=== PATIENT | female | born 1995 | race Caucasian/White ===

== ENCOUNTER 2019-03-18 21:50 | Emergency (ER) | payer BC, OTHER ==
[2019-03-18 22:05] VITALS: BP 124/81; PULSE 93; TEMP 98.4; BMI 23.4
--- NOTE | 2019-03-18 23:05 | PDOC ---
History of Present Illness - General Chief Complaint: Chest Pain Stated Complaint: CHEST PAIN Time Seen by Provider: 03/18/19 23:03 Past History - Past Medical History Allergies/Adverse Reactions: Allergies Allergy/AdvReac Type Severity Reaction Status Date / Time No Known Allergies Allergy Verified 03/18/19 22:00 Anemia: No Asthma: No Cancer: No Cardiac Disorders: No COPD: No CHF: No DVT: No - Suicide/Smoking/Psychosocial Hx Smoking History: Former smoker Have you smoked in the past 12 months: Yes If you are a former smoker, when did you quit?: aug 2018 Information on smoking cessation initiated: Yes Hx Alcohol Use: Yes (socially) Drug/Substance Use Hx: No *Physical Exam - Vital Signs Last Vital Signs Temp Pulse Resp BP Pulse Ox 98.4 F 93 H 20 124/81 99 03/18/19 22:00 03/18/19 22:00 03/18/19 22:00 03/18/19 22:00 03/18/19 22:00 Heart Score/ECG Review - History History: Slightly suspicious - Age Age: </= 45 - Risk Factors Based on the list above the patient has:: 1-2 risk factors ED Treatment Course - LABORATORY CBC & Chemistry Diagram: 03/19/19 00:35 03/19/19 01:50 *DC/Admit/Observation/Transfer Diagnosis at time of Disposition: Dyspepsia - Discharge Dispostion Disposition: HOME Condition at time of disposition: Stable Decision to Admit order: No - Referrals Referrals: Catherine Maradiaga MD [Staff Physician] - - Patient Instructions Printed Discharge Instructions: DI for Anxiety -- Adult, DI for Dyspepsia Additional Instructions: You were evaluated in the Emergency Department for chest pain. We evaluated your symptoms, and your bloodwork and ultrasound imaging all returned within normal limits. Please follow up Dr. Maradiaga, he can refer you to a good therapist in his group. Also follow up with your primary care doctor within the next week. Please return to the emergency department if you develop trouble breathing, worsening chest pain, swelling in your legs, or high fevers. - Post Discharge Activity
[2019-03-18] MEDS ORDERED: MAG HYDROX/AL HYDROX/SIMETH 30 ML UNIT-DOSE CUP PO ONE (23:51)
[2019-03-18] MEDS ORDERED: FAMOTIDINE 20 MG/50 ML IVPB 20 MG/50 ML MG IVPB ONE (23:51)
--- NOTE | 2019-03-18 23:54 | PDOC ---
Documentation entered by Codi Alves SCRIBE, acting as scribe for Kj Campa MD. Kj Campa MD: This documentation has been prepared by the Joselyn millan Brenda, SCRIBE, under my direction and personally reviewed by me in its entirety. I confirm that the documentation accurately reflects all work, treatment, procedures, and medical decision making performed by me. Attending Attestation - Resident Resident Name: RenettaDustin - ED Attending Attestation I have performed the following: I have examined & evaluated the patient, The case was reviewed & discussed with the resident, I agree w/resident's findings & plan, Exceptions are as noted - HPI HPI: 03/19/19 01:06 The patient is a 23 year old female, with no reported significant PMH who presents to the emergency department with 2 days of ongoing worsening midsternal chest pain, which she describes as a squeezing sensation. She reports that the pain was initially intermittent but became constant, and reports slight nausea with 1 episode of NBNB emesis. Patient also states that she has felt her heart racing, but notes that it could be due to feeling anxious about symptoms. The patient denies shortness of breath, headache and dizziness. Denies fever, chills, diarrhea and constipation. Denies dysuria, frequency, urgency and hematuria. Allergies: NKA Past surgical history: None reported Social history: Former tobacco use, quit August of 2018. Social alcohol use. - Physicial Exam PE: 03/19/19 01:12 Vitals: Triage vital signs reviewed General Appearance: No acute distress, well nourished, well developed Head: Atraumatic Neck: Supple; No nuchal rigidity Chest Wall: Nontender Cardiac: Regular rate and rhythm, no murmurs, no rubs, no gallops Lungs: Clear to auscultation bilateral, good air movement bilaterally Abdomen: Soft, nondistended, normal bowel sounds, nontender to palpation Extremities: (+) Very slight right lower extremity swelling. Full range of motion to all extremities, no cyanosis, no clubbing. Skin: Warm and dry, no rashes or lesions, no rash, no petechiae Neuro: AOX3; Cranial Nerves 2-12 grossly intact. Psych: Normal mood, normal affect - Medical Decision Making 03/19/19 01:42 23 years old on control presents to the ED with pleuritic right-sided chest pain became concerned when pain became more constant No travel no sick contacts has felt her heart racing Physical examination was noted to all 4 very slight right lower extremity swelling EKG demonstrated normal sinus rhythm incomplete right bundle-branch block Low risk for PE however patient Cannot be PERC'd out. Will check D dimer, cxr , US labs and resasses. Dr. Yu to follow up labs and dispo
[2019-03-19] MEDS ORDERED: FAMOTIDINE 20 MG/50 ML IVPB 20 MG/50 ML MG IVPB ONE (00:50)
[2019-03-19] MEDS ORDERED: MAG HYDROX/AL HYDROX/SIMETH 30 ML UNIT-DOSE CUP ONE (00:50)
[2019-03-19 00:57] LABS: BASO % 0.4 % (0-2.0); EOS % 2.9 % (0-4.5); HEMATOCRIT 38.5 % (32.4-45.2); MCH 30.7 pg (25.7-33.7); MCHC 33.9 g/dl (32.0-36.0); MEAN CELL VOLUME 90.5 fl (80-96); MEAN PLT VOLUME 9.8 fl (7.5-11.1); MONO % 6.5 % (3.8-10.2); NEUT % 65.2 % (42.8-82.8); PLATELET COUNT 236 K/MM3 (134-434); RBC 4.25 M/mm3 (3.60-5.2); RDW 12.6 % (11.6-15.6); WHITE BLOOD COUNT 12.9 K/mm3 (4.0-10.0)
[2019-03-19 01:25] LABS: LIPASE 152 U/L (73-393)
[2019-03-19 02:47] LABS: ALBUMIN 3.8 g/dl (3.4-5.0); BILIRUBIN,TOTAL 0.6 mg/dL (0.2-1); BLOOD UREA NITROGEN 13.6 mg/dL (7-18); CALCIUM 9.7 mg/dL (8.5-10.1); CREATININE 0.8 mg/dL (0.55-1.3); POTASSIUM 3.5 mmol/L (3.5-5.1); TOT PROT 6.7 g/dl (6.4-8.2)
--- NOTE | 2019-03-19 16:06 | EKG ---
Test Reason : Blood Pressure : / mmHG Vent. Rate : 083 BPM Atrial Rate : 083 BPM P-R Int : 136 ms QRS Dur : 092 ms QT Int : 386 ms P-R-T Axes : 041 068 028 degrees QTc Int : 453 ms NORMAL SINUS RHYTHM INCOMPLETE RIGHT BUNDLE BRANCH BLOCK BORDERLINE ECG NO PREVIOUS ECGS AVAILABLE Confirmed by MD CARLA, AKIN ([id number]) on 03/19/2019 4:05:51 PM Referred By: Confirmed By:AKIN AGUIRRE MD
--- NOTE | 2019-03-21 11:40 | EKG ---
Test Reason : Blood Pressure : / mmHG Vent. Rate : 084 BPM Atrial Rate : 084 BPM P-R Int : 132 ms QRS Dur : 088 ms QT Int : 386 ms P-R-T Axes : 059 065 017 degrees QTc Int : 456 ms NORMAL SINUS RHYTHM NORMAL ECG WHEN COMPARED WITH ECG OF 18-MAR-2019 21:56, NO SIGNIFICANT CHANGE WAS FOUND Confirmed by TITO SONG MD ([id number]) on 03/21/2019 11:40:14 AM Referred By: Confirmed By:TITO SONG MD
== END 2019-03-19 04:56 | disposition home or self-care (01) ==
LOC: JER 21:50
PROC: 3E033GC Introduction of Other Therapeutic Substance into Peripheral Vein, Percutaneous Approach (ICD-10-PCS; principal; 2019-03-18)
DX: R10.13 Epigastric pain (principal); Z87.891 Personal history of nicotine dependence
CPT/HCPCS: 36415; 80053; 83690; 84484; 84702; 85025; 85379; 93005; 93010; 93971-TC; 99283-25